=== PATIENT | male | born 1975 | race African-American/Black ===

== ENCOUNTER 2022-11-10 12:36 | Inpatient (IN) | payer OTHER ==
[2022-11-10 13:32] VITALS: BMI 24.9
[2022-11-10] MEDS ORDERED: BISMUTH SUBSALICYLATE 524 MG/30 ML PO PRN (17:35)
[2022-11-10] MEDS ORDERED: NALOXONE HCL (KLOXXADO) 8 MG SPRAY NS PRN (17:35)
[2022-11-10] MEDS ORDERED: NICOTINE 10 MG CARTRIDGE (INHALER) IH PRN (17:35)
[2022-11-10] MEDS ORDERED: MAG HYDROX/AL HYDROX/SIMETH 30 ML UNIT-DOSE CUP PO PRN (17:35)
[2022-11-10] MEDS ORDERED: IBUPROFEN 400 MG TABLET (FP) PO PRN (17:35)
[2022-11-10] MEDS ORDERED: LOPERAMIDE HCL 2 MG CAPSULE PO PRN (17:35)
[2022-11-10] MEDS ORDERED: NALOXONE HCL 0.4 MG/ML VIAL IM PRN (17:35)
[2022-11-10] MEDS ORDERED: METHOCARBAMOL 500 MG TABLET PO PRN (17:35)
[2022-11-10] MEDS ORDERED: BENZOCAINE/MENTHOL (CHLORASEPTIC ) LOZENGE MM PRN (17:35)
[2022-11-10] MEDS ORDERED: hydrOXYzine PAMOATE 25 MG CAPSULE (FP) PO PRN (17:35)
[2022-11-10] MEDS ORDERED: guaiFENesin 600 MG TABLET.ER (FP) PO PRN (17:35)
[2022-11-10] MEDS ORDERED: BENZONATATE 200 MG CAPSULE PO PRN (17:35)
[2022-11-10] MEDS ORDERED: IBUPROFEN 600 MG TABLET (FP) PO PRN (17:35)
[2022-11-10] MEDS ORDERED: MAGNESIUM HYDROX 2400MG/30ML ORAL SUSPENSION 30 ML CUP PO PRN (17:35)
[2022-11-10] MEDS ORDERED: ACETAMINOPHEN 325 MG TABLET (FP) PO PRN (17:35)
[2022-11-10] MEDS ORDERED: POLYETHYLENE GLYCOL (HEALTHYLAX) 3350 17 GM PACKET PO PRN (17:35)
[2022-11-10] MEDS ORDERED: DICYCLOMINE HCL 10 MG CAPSULE PO PRN (17:35)
[2022-11-10] MEDS ORDERED: ONDANSETRON *ODT* 4 MG TABLET SL PRN (17:35)
[2022-11-10] MEDS ORDERED: MELATONIN 5 MG TABLETS PO SCH (22:00)
[2022-11-10] MEDS ORDERED: THIAMINE HCL 100 MG TABLET (FP) PO SCH (22:00)
[2022-11-11 06:33] VITALS: RESP 16
[2022-11-11] MEDS ORDERED: PRENATAL VITAMINS W/ FOLIC ACID TABLET (FP) PO SCH (10:00)
[2022-11-11 10:30] LABS: HEMATOCRIT 44.4 % (35.4-49); HEMOGLOBIN 15.2 GM/dL (11.7-16.9); MCH 34.9 pg (25.7-33.7); MCHC 34.2 g/dl (32.0-35.9); MEAN CELL VOLUME 102.1 fl (80-96); MEAN PLT VOLUME 7.3 fl (7.5-11.1); PLATELET COUNT 269 10^3/uL (134-434); RBC 4.35 M/mm3 (4.00-5.60); WHITE BLOOD COUNT 6.9 K/mm3 (4.0-10.0)
[2022-11-11 10:38] LABS: CALCIUM 9.3 mg/dL (8.5-10.1)
[2022-11-11 10:39] LABS: ALBUMIN 3.6 g/dl (3.4-5.0)
[2022-11-11 10:42] LABS: CREATININE 1.3 mg/dL (0.55-1.3)
[2022-11-11 10:43] LABS: BILIRUBIN,TOTAL 1.5 mg/dL (0.2-1)
[2022-11-11 10:44] LABS: TOT PROT 6.8 g/dl (6.4-8.2)
[2022-11-11 10:54] VITALS: BP 104/60; PULSE 60; TEMP 97.6
[2022-11-11] MEDS ORDERED: ALBUTEROL SO4 HFA INHALER IH PRN (11:17)
[2022-11-11] MEDS ORDERED: PANTOPRAZOLE 20 MG TABLET PO SCH (11:30)
== END 2022-11-11 10:20 | disposition home or self-care (01) | DRG 774 ==
LOC: YASAS 12:36 → Y3N 18:16 → UNDOADMIN 18:16
PROVIDERS: ADMIT Allergy & Immunology; ATTEND Surgery
PROC: HZ2ZZZZ Detoxification Services for Substance Abuse Treatment (ICD-10-PCS; principal; 2022-11-10)
DX: F10.20 Alcohol dependence, uncomplicated (principal); F14.20 Cocaine dependence, uncomplicated; F12.20 Cannabis dependence, uncomplicated; F17.210 Nicotine dependence, cigarettes, uncomplicated; F45.20 Hypochondriacal disorder, unspecified; K21.9 Gastro-esophageal reflux disease without esophagitis; Z28.310 Unvaccinated for COVID-19; Z28.9 Immunization not carried out for unspecified reason
CPT/HCPCS: 36415; 80053; 85027; 86780; 87811; C9803-CS; U0003; U0005

== ENCOUNTER 2023-04-25 19:57 | Inpatient (IN) | payer OTHER ==
[2023-04-25 20:49] VITALS: BMI 23.4
[2023-04-25] MEDS ORDERED: hydrOXYzine PAMOATE 25 MG CAPSULE (FP) PO PRN (21:17)
[2023-04-25] MEDS ORDERED: POLYETHYLENE GLYCOL (HEALTHYLAX) 3350 17 GM PACKET PO PRN (21:17)
[2023-04-25] MEDS ORDERED: guaiFENesin 600 MG TABLET.ER (FP) PO PRN (21:17)
[2023-04-25] MEDS ORDERED: NICOTINE POLACRILEX 2 MG GUM BUC PRN (21:17)
[2023-04-25] MEDS ORDERED: BENZOCAINE/MENTHOL (CHLORASEPTIC ) LOZENGE MM PRN (21:17)
[2023-04-25] MEDS ORDERED: MAGNESIUM HYDROX 2400MG/30ML ORAL SUSPENSION 30 ML CUP PO PRN (21:17)
[2023-04-25] MEDS ORDERED: LOPERAMIDE HCL 2 MG CAPSULE PO PRN (21:17)
[2023-04-25] MEDS ORDERED: IBUPROFEN 400 MG TABLET (FP) PO PRN (21:17)
[2023-04-25] MEDS ORDERED: METHOCARBAMOL 500 MG TABLET PO PRN (21:17)
[2023-04-25] MEDS ORDERED: BENZONATATE 200 MG CAPSULE PO PRN (21:17)
[2023-04-25] MEDS ORDERED: NALOXONE HCL 0.4 MG/ML VIAL IM PRN (21:17)
[2023-04-25] MEDS ORDERED: ONDANSETRON *ODT* 4 MG TABLET SL PRN (21:17)
[2023-04-25] MEDS ORDERED: ACETAMINOPHEN 325 MG TABLET (FP) PO PRN (21:17)
[2023-04-25] MEDS ORDERED: IBUPROFEN 600 MG TABLET (FP) PO PRN (21:17)
[2023-04-25] MEDS ORDERED: MAG HYDROX/AL HYDROX/SIMETH 30 ML UNIT-DOSE CUP PO PRN (21:17)
[2023-04-25] MEDS ORDERED: BISMUTH SUBSALICYLATE 524 MG/30 ML PO PRN (21:17)
[2023-04-25] MEDS ORDERED: DICYCLOMINE HCL 10 MG CAPSULE PO PRN (21:17)
[2023-04-25] MEDS ORDERED: NALOXONE HCL (KLOXXADO) 8 MG SPRAY NS PRN (21:17)
[2023-04-25] MEDS ORDERED: ALBUTEROL SO4 HFA INHALER IH PRN (21:21)
[2023-04-26 01:09] VITALS: RESP 18
[2023-04-26] MEDS: MELATONIN 5 MG TABLETS PO SCH ×2 (01:11→22:50)
[2023-04-26] MEDS: THIAMINE HCL 100 MG TABLET (FP) PO SCH ×2 (01:11→22:50)
[2023-04-26] MEDS: PRENATAL VITAMINS W/ FOLIC ACID TABLET (FP) PO SCH (10:33)
[2023-04-26] MEDS: NICOTINE 21 MG/24 HOURS TOPICAL PATCH TD SCH (10:36)
[2023-04-26 11:08] LABS: HEMATOCRIT 41.5 % (35.4-49); HEMOGLOBIN 14.3 GM/dL (11.7-16.9); MCH 36.2 pg (25.7-33.7); MCHC 34.6 g/dl (32.0-35.9); MEAN CELL VOLUME 104.6 fl (80-96); MEAN PLT VOLUME 7.5 fl (7.5-11.1); PLATELET COUNT 261 10^3/uL (134-434); RBC 3.96 M/mm3 (4.00-5.60); RDW 12.4 % (11.9-15.9); WHITE BLOOD COUNT 6.6 K/mm3 (4.0-10.0)
[2023-04-26 11:27] LABS: POTASSIUM 4.6 mmol/L (3.5-5.1)
[2023-04-26 11:34] LABS: BLOOD UREA NITROGEN 14.5 mg/dL (7-18); CALCIUM 8.7 mg/dL (8.5-10.1)
[2023-04-26 11:35] LABS: CREATININE 0.9 mg/dL (0.55-1.3)
[2023-04-26 11:37] LABS: BILIRUBIN,TOTAL 0.2 mg/dL (0.2-1); TOT PROT 5.5 g/dl (6.4-8.2)
[2023-04-26] MEDS: PANTOPRAZOLE 20 MG TABLET PO SCH (14:42)
[2023-04-26 17:56] VITALS: BP 122/68; PULSE 56; TEMP 97.9
[2023-04-27] MEDS: PANTOPRAZOLE 20 MG TABLET PO SCH (10:21)
[2023-04-27] MEDS: PRENATAL VITAMINS W/ FOLIC ACID TABLET (FP) PO SCH (10:21)
[2023-04-27] MEDS: NICOTINE 21 MG/24 HOURS TOPICAL PATCH TD SCH (10:22)
== END 2023-04-27 10:54 | disposition home or self-care (01) | DRG 774 ==
LOC: YASAS 19:57 → Y6N 23:05
PROVIDERS: ADMIT Allergy & Immunology; ATTEND Surgery
PROC: HZ2ZZZZ Detoxification Services for Substance Abuse Treatment (ICD-10-PCS; principal; 2023-04-25)
DX: F10.20 Alcohol dependence, uncomplicated (principal); F14.20 Cocaine dependence, uncomplicated; F12.20 Cannabis dependence, uncomplicated; F17.210 Nicotine dependence, cigarettes, uncomplicated; I10 Essential (primary) hypertension; J45.20 Mild intermittent asthma, uncomplicated; K21.9 Gastro-esophageal reflux disease without esophagitis; Z28.310 Unvaccinated for COVID-19; Z28.9 Immunization not carried out for unspecified reason; Z88.0 Allergy status to penicillin
CPT/HCPCS: 36415; 80053; 85027; 86780; 87635; 87811; 93005; 93010

== ENCOUNTER 2023-07-06 11:25 | Inpatient (IN) | payer OTHER ==
[2023-07-06 11:42] VITALS: BMI 21.2
[2023-07-06] MEDS ORDERED: guaiFENesin 600 MG TABLET.ER (FP) PO PRN (12:19)
[2023-07-06] MEDS ORDERED: IBUPROFEN 600 MG TABLET (FP) PO PRN (12:19)
[2023-07-06] MEDS ORDERED: NICOTINE POLACRILEX 2 MG GUM BUC PRN (12:19)
[2023-07-06] MEDS ORDERED: BISMUTH SUBSALICYLATE 262 MG/15 ML BTL PO PRN (12:19)
[2023-07-06] MEDS ORDERED: BENZONATATE 200 MG CAPSULE PO PRN (12:19)
[2023-07-06] MEDS ORDERED: ACETAMINOPHEN 325 MG TABLET (FP) PO PRN (12:19)
[2023-07-06] MEDS ORDERED: POLYETHYLENE GLYCOL (HEALTHYLAX) 3350 17 GM PACKET PO PRN (12:19)
[2023-07-06] MEDS ORDERED: BENZOCAINE/MENTHOL (CHLORASEPTIC ) LOZENGE MM PRN (12:19)
[2023-07-06] MEDS ORDERED: IBUPROFEN 400 MG TABLET (FP) PO PRN (12:19)
[2023-07-06] MEDS ORDERED: NALOXONE HCL (KLOXXADO) 8 MG SPRAY NS PRN (12:19)
[2023-07-06] MEDS ORDERED: NALOXONE HCL 0.4 MG/ML VIAL IM PRN (12:19)
[2023-07-06] MEDS ORDERED: hydrOXYzine PAMOATE 25 MG CAPSULE (FP) PO PRN (12:19)
[2023-07-06] MEDS ORDERED: LOPERAMIDE HCL 2 MG CAPSULE PO PRN (12:19)
[2023-07-06] MEDS ORDERED: ONDANSETRON *ODT* 4 MG TABLET SL PRN (12:19)
[2023-07-06] MEDS ORDERED: MAGNESIUM HYDROX 2400MG/30ML ORAL SUSPENSION 30 ML CUP PO PRN (12:19)
[2023-07-06] MEDS: THIAMINE HCL 100 MG TABLET (FP) PO SCH (22:33)
[2023-07-06] MEDS: MELATONIN 5 MG TABLETS PO SCH (22:33)
[2023-07-06] MEDS: MAG HYDROX/AL HYDROX/SIMETH 30 ML UNIT-DOSE CUP PO PRN (23:05)
[2023-07-07 09:08] VITALS: RESP 16
[2023-07-07] MEDS: PRENATAL VITAMINS W/ FOLIC ACID TABLET (FP) PO SCH (10:36)
[2023-07-07] MEDS: PANTOPRAZOLE 20 MG TABLET PO SCH (10:37)
[2023-07-07] MEDS: METHOCARBAMOL 500 MG TABLET PO PRN (10:39)
[2023-07-07] MEDS: ALBUTEROL SO4 HFA INHALER IH PRN (10:39)
[2023-07-07 12:09] LABS: POTASSIUM 3.9 mmol/L (3.5-5.1)
[2023-07-07 12:14] LABS: HEMATOCRIT 40.5 % (35.4-49); HEMOGLOBIN 13.8 GM/dL (11.7-16.9); MCH 35.9 pg (25.7-33.7); MCHC 34.2 g/dl (32.0-35.9); MEAN PLT VOLUME 7.4 fl (7.5-11.1); PLATELET COUNT 268 10^3/uL (134-434); RBC 3.86 M/mm3 (4.00-5.60); RDW 12.3 % (11.9-15.9); WHITE BLOOD COUNT 5.4 K/mm3 (4.0-10.0)
[2023-07-07 12:23] LABS: BLOOD UREA NITROGEN 17.4 mg/dL (7-18); CALCIUM 9.3 mg/dL (8.5-10.1)
[2023-07-07 12:24] LABS: ALBUMIN 3.3 g/dl (3.4-5.0)
[2023-07-07 12:26] LABS: CREATININE 1.3 mg/dL (0.55-1.3)
[2023-07-07 12:28] LABS: BILIRUBIN,TOTAL 0.6 mg/dL (0.2-1); TOT PROT 6.2 g/dl (6.4-8.2)
[2023-07-07 13:00] VITALS: BP 118/69; PULSE 69; TEMP 97.8
== END 2023-07-07 12:45 | disposition left against medical advice (07) | DRG 770 ==
LOC: YASAS 11:25 → Y3N 13:34
PROVIDERS: ADMIT Allergy & Immunology; ATTEND Surgery
PROC: HZ2ZZZZ Detoxification Services for Substance Abuse Treatment (ICD-10-PCS; principal; 2023-07-06)
DX: F10.20 Alcohol dependence, uncomplicated (principal); F14.20 Cocaine dependence, uncomplicated; F17.210 Nicotine dependence, cigarettes, uncomplicated; I10 Essential (primary) hypertension; J45.909 Unspecified asthma, uncomplicated; K21.9 Gastro-esophageal reflux disease without esophagitis; F91.8 Other conduct disorders; Z91.199 Patient's noncompliance with other medical treatment and regimen due to unspecified reason; Z86.73 Personal history of transient ischemic attack (TIA), and cerebral infarction without residual deficits; Z56.0 Unemployment, unspecified; Z59.00 Homelessness unspecified; Z88.0 Allergy status to penicillin
CPT/HCPCS: 36415; 80053; 80307; 85027; 86780; 87635; 93005; 93010